=== PATIENT | female | born 1990 | race Caucasian/White ===

== ENCOUNTER 2016-07-26 18:03 | Emergency (ER) | payer OTHER ==
[2016-07-26 18:11] VITALS: BMI 20.5
[2016-07-26 18:56] LABS: BASO % 0.4 % (0.0-2.0); EOS % 0.1 % (0.0-4.0); HEMATOCRIT 41.3 % (34.0-47.0); LYMPH # 1.1 K/uL (1.0-4.3); LYMPH % 9.9 % (20.0-40.0); MEAN CELL VOLUME 88.8 fL (81.0-99.0); MEAN CORPUSCULAR HEMOGLOBIN 29.3 pg (27.0-31.0); MEAN PLATELET VOLUME 8.1 fL (7.2-11.7); MONO # 0.3 K/uL (0.0-0.8); MONO % 2.7 % (0.0-10.0); PLATELET COUNT 318 K/uL (130-400); RED CELL DISTRIBUTION WIDTH 14.1 % (11.5-14.5); WHITE BLOOD COUNT 11.4 K/uL (4.8-10.8)
[2016-07-26 19:04] LABS: CHLORIDE 103 mmol/L (98-107); POTASSIUM 3.2 mmol/L (3.6-5.2); SODIUM 141 mmol/L (132-148)
[2016-07-26 19:06] LABS: BILIRUBIN,TOTAL 0.7 mg/dL (0.2-1.3); GFR AFRICAN-AMERICAN > 60
[2016-07-26 19:07] LABS: ALB/GLOB RATIO 1.4 (1.0-2.1); ALKALINE PHOSPHATASE 73 U/L (38-126); ALT/SGPT 19 U/L (9-52); AST/SGOT 22 U/L (14-36); BLOOD UREA NITROGEN 11 mg/dL (7-17); CALCIUM 9.5 mg/dl (8.6-10.4); CARBON DIOXIDE 22 mmol/L (22-30); GLUCOSE,RANDOM 140 mg/dL (65-105); TOTAL PROTEIN 7.4 g/dL (6.3-8.3)
[2016-07-26] MEDS ORDERED: Sodium Chloride 0.9% 1,000 ML IV ONE (19:34)
--- NOTE | 2016-07-26 19:34 | C.PDOC ---
History Of Present Illness pt presents with abdominal pain, nausea nad vomiting. Has also had vaginal bleeding since may 2016, when she had tubal ligation. Was seen by production statistical clerk yesterday and given "some shots" No f/c/ not tolerating po Time Seen by Provider: 07/26/16 19:33 Chief Complaint (Nursing): Abdominal Pain History Per: Patient Onset/Duration Of Symptoms: Days Current Symptoms Are (Timing): Still Present Context: Other Severity: Moderate Pain Scale Rating Of: 4 Location Of Pain/Discomfort: Epigastric Radiation Of Pain To:: None Quality Of Discomfort: Dull, Cramping Associated Symptoms: Nausea, Vomiting. denies: Fever, Chills, Diarrhea Exacerbating Factors: None Alleviating Factors: None Last Bowel Movement: Today Recent travel outside of the [place] States: No Additional History Per: Family Abnormal Vaginal Bleeding: Yes Past Medical History Reviewed: Historical Data, Nursing Documentation, Vital Signs Vital Signs: Last Vital Signs Temp 97.6 F 07/26/16 18:14 Pulse 90 07/26/16 20:45 Resp 18 07/26/16 20:45 BP 112/67 07/26/16 20:45 Pulse Ox 97 07/26/16 20:45 - Medical History PMH: Asthma, Bipolar Disorder, Gastritis, Kidney Stones, Seizures Family History: States: No Known Family Hx - Social History Hx Tobacco Use: Yes Hx Alcohol Use: No Hx Substance Use: Yes - Immunization History Hx Tetanus Toxoid Vaccination: No Hx Influenza Vaccination: No Hx Pneumococcal Vaccination: No Review Of Systems Constitutional: Positive for: Malaise. Negative for: Fever, Chills Eyes: Negative for: Vision Change ENT: Negative for: Throat Pain Cardiovascular: Negative for: Chest Pain Respiratory: Negative for: Shortness of Breath Gastrointestinal: Positive for: Nausea, Vomiting, Abdominal Pain Genitourinary: Positive for: Vaginal Bleeding Musculoskeletal: Negative for: Back Pain Skin: Negative for: Rash, Lesions, Jaundice, Bruising Neurological: Negative for: Weakness Psych: Negative for: Anxiety Physical Exam - Physical Exam Appears: Non-toxic Skin: Warm, Dry Head: Normacephalic Eye(s): bilateral: Normal Inspection Oral Mucosa: Moist Neck: Supple Chest: Symmetrical Cardiovascular: Rhythm Regular Respiratory: No Rales, No Rhonchi, No Wheezing Gastrointestinal/Abdominal: Soft, Tenderness (mid epigastric), No Distention, No Guarding Back: Normal Inspection, No CVA Tenderness Extremity: Normal ROM Extremity: Bilateral: Atraumatic, Normal Color And Temperature Neurological/Psych: Oriented x3, Normal Speech, Normal Cognition Gait: Steady ED Course And Treatment - Laboratory Results Result Diagrams: 07/26/16 18:45 07/26/16 18:45 O2 Sat by Pulse Oximetry: 98 Pulse Ox Interpretation: Normal Progress Note: blood work, ivf, zofran. pepcid Reevaluation Time: 23:25 Reassessment Condition: Improved Disposition Counseled Patient/Family Regarding: Studies Performed, Diagnosis, Need For Followup, Rx Given - Disposition Referrals: [facility] [Outside] Formerly [facility] [Outside] Disposition: HOME/ ROUTINE Disposition Time: 19:34 Condition: FAIR Prescriptions: Ondansetron ODT [Zofran ODT] 1 odt PO BID PRN #10 odt PRN Reason: Nausea/Vomiting traMADol [Ultram] 50 mg PO TID PRN #12 tab PRN Reason: Pain, Moderate (4-7) Instructions: Abdominal Pain (ED), Acute Nausea and Vomiting (ED) - Clinical Impression Clinical Impression: Abdominal pain, Nausea & vomiting
[2016-07-26] MEDS ORDERED: Sodium Chloride 0.9% 1,000 ML ONE (19:38)
[2016-07-26 19:42] VITALS: RESP 18
[2016-07-26 20:43] LABS: NEUTROPHIL 83 % (50-75); NUCLEATED RED BLOOD CELL 1 % (0-0); REACTIVE LYMPHOCYTES 3 % (0-0); TOTAL CELLS COUNTED 100
[2016-07-26] MEDS ORDERED: Iodixanol 320 MG/ML 100 ML BOTTLE IV ONE (20:49)
[2016-07-26 21:07] LABS: RBC URINE 18 /hpf (0-3); TRANSITIONAL EPITHIAL < 1 /hpf (0-3); URINE BACTERIA RARE (<OCC); URINE BILIRUBIN NEGATIVE (NEGATIVE); URINE COLOR Amber (YELLOW); URINE GLUCOSE (UA) NORMAL (Normal); URINE KETONE 2+ mg/dL (NEGATIVE); URINE LEUKOCYTE ESTERASE NEG Leu/uL (Negative); URINE PROTEIN 2+ mg/dL (NEGATIVE); URINE UROBILINOGEN NORMAL mg/dL (0.2-1.0); WBC URINE 2 /hpf (0-5)
[2016-07-26 21:09] LABS: URINE BLOOD 2+ (NEGATIVE)
[2016-07-26 21:20] VITALS: PULSE 90
[2016-07-26 23:28] VITALS: O2SAT 98
[2016-07-26 23:43] VITALS: BP 130/84; TEMP 97.9
--- NOTE | 2016-07-27 08:35 | CT ---
PROCEDURE: CT Abdomen and Pelvis with intravenous contrast HISTORY: mid epigastric pain, status post tubal ligation COMPARISON: CT abdomen and pelvis dated 06/18/2015 TECHNIQUE: Multiple contiguous axial images were performed through the abdomen and pelvis with intravenous contrast. Subsequently, sagittal and coronal reformatted images were obtained.. Radiation dose: Total exam DLP = 253 mGy-cm. This CT exam was performed using one or more of the following dose reduction techniques: Automated exposure control, adjustment of the mA and/or kV according to patient size, and/or use of iterative reconstruction technique. FINDINGS: LOWER THORAX: Unremarkable. LIVER: 1.9 centimeter focal area of low attenuation seen within the medial right hepatic lobe adjacent to the ligamentum teres demonstrating a Hounsfield unit attenuation of 50, indeterminate. This may represent some focal fatty infiltration. Additional etiologies not excluded. Clinical correlation. GALLBLADDER AND BILE DUCTS: Unremarkable. PANCREAS: Unremarkable. No gross lesion or ductal dilatation. SPLEEN: Unremarkable. ADRENALS: Unremarkable. No mass. KIDNEYS AND URETERS: Unremarkable. No hydronephrosis. No solid mass. VASCULATURE: Unremarkable. No aortic aneurysm. BOWEL: Unremarkable. No obstruction. Under distended and/or mildly prominent left hemicolon. APPENDIX: Not well identified. No findings to suggest acute appendicitis. PERITONEUM: Unremarkable. No free fluid. No free air. LYMPH NODES: Unremarkable. No enlarged lymph nodes. BLADDER: Unremarkable. REPRODUCTIVE: Unremarkable. BONES: Suggestion of a prominent posterior disc bulge at the L4-5 level. Correlation with lumbar spine MRI may be helpful if clinically indicated. OTHER FINDINGS: None. IMPRESSION: Negative acute. 1.9 centimeter focal area of low attenuation seen within the medial right hepatic lobe adjacent to the ligamentum teres demonstrating a Hounsfield unit attenuation of 50, indeterminate. This may represent some focal fatty infiltration. Additional etiologies not excluded. Clinical correlation. Under distended and/or mildly prominent left hemicolon. Suggestion of a prominent posterior disc bulge at the L4-5 level. Correlation with lumbar spine MRI may be helpful if clinically indicated. These findings were preliminarily reported at 10:57 p.m. on 07/26/[address] Branden Morgan from [employer].
== END 2016-07-26 23:43 | disposition home or self-care (01) ==
LOC: C.ER 18:03
DX: R10.13 Epigastric pain (principal); R11.2 Nausea with vomiting, unspecified
CPT/HCPCS: 74177; 80053; 81001; 83690; 84703; 85025; 96361; 96374; 96375; 99285; J2270; J2405; J2765; J7040; Q9967

== ENCOUNTER 2016-07-27 19:00 | Observation (INO) | payer OTHER ==
[2016-07-27 19:01] VITALS: BMI 20.5
[2016-07-27] MEDS ORDERED: Sodium Chloride 0.9% 1,000 ML IV ONE (19:43)
[2016-07-27] MEDS ORDERED: Sodium Chloride 0.9% 1,000 ML ONE (19:52)
[2016-07-27 19:54] LABS: BASO % 0.3 % (0.0-2.0); EOS % 0.1 % (0.0-4.0); HEMATOCRIT 40.9 % (34.0-47.0); LYMPH # 1.6 K/uL (1.0-4.3); MEAN CORPUSCULAR HEMOGLOBIN 29.4 pg (27.0-31.0); MEAN CORPUSCULAR HGB CONC 33.1 g/dL (33.0-37.0); MEAN PLATELET VOLUME 8.2 fL (7.2-11.7); MONO # 0.8 K/uL (0.0-0.8); MONO % 6.5 % (0.0-10.0); RED CELL DISTRIBUTION WIDTH 14.2 % (11.5-14.5)
[2016-07-27 20:02] LABS: CHLORIDE 101 mmol/L (98-107); POTASSIUM 2.8 mmol/L (3.6-5.2); SODIUM 138 mmol/L (132-148)
[2016-07-27 20:04] LABS: GFR AFRICAN-AMERICAN > 60
[2016-07-27 20:05] LABS: ALB/GLOB RATIO 1.7 (1.0-2.1); ALKALINE PHOSPHATASE 71 U/L (38-126); ALT/SGPT 23 U/L (9-52); AST/SGOT 17 U/L (14-36); BILIRUBIN,TOTAL 0.6 mg/dL (0.2-1.3); BLOOD UREA NITROGEN 8 mg/dL (7-17); CARBON DIOXIDE 20 mmol/L (22-30); GLUCOSE,RANDOM 96 mg/dL (65-105); TOTAL PROTEIN 7.1 g/dL (6.3-8.3)
[2016-07-27 20:29] LABS: RBC URINE 18 /hpf (0-3); URINE BILIRUBIN 1+ (NEGATIVE); URINE BLOOD NEGATIVE (NEGATIVE); URINE COLOR Yellow (YELLOW); URINE GLUCOSE (UA) NORMAL (Normal); URINE KETONE 2+ mg/dL (NEGATIVE); URINE LEUKOCYTE ESTERASE NEG Leu/uL (Negative); URINE PROTEIN 2+ mg/dL (NEGATIVE); WBC URINE 3 /hpf (0-5)
[2016-07-27] MEDS ORDERED: Morphine 4 MG/ML VIAL ONE (21:07)
--- NOTE | 2016-07-27 22:23 | C.PDOC ---
History Of Present Illness 25 y/o female presents to the ED for evaluation of vomiting which began yesterday. Patient states she underwent tubal ligation around 1 month ago. Patient was seen by her PMD a couple days ago and was prescribed control pills. Patient states she took her second pill yesterday, shortly after which her episodes of vomiting started. Patient was seen in the ED where she underwent labwork, CT scan, and test; all results were unremarkable. Patient was discharged with Rx, which she has yet to fill. Patient notes her vomiting has continued since her discharge and she now has diffuse abdominal pain. Patient denies fever, chills, diarrhea, dysuria, hematuria. Time Seen by Provider: 07/27/16 19:38 Chief Complaint (Nursing): GI Problem History Per: Patient History/Exam Limitations: no limitations Onset/Duration Of Symptoms: Hrs Current Symptoms Are (Timing): Still Present Quality Of Discomfort: "Pain" Associated Symptoms: Vomiting. denies: Fever, Chills, Diarrhea, Urinary Symptoms Exacerbating Factors: None Alleviating Factors: None Last Bowel Movement: Today Recent travel outside of the [place] States: No Additional History Per: Patient Abnormal Vaginal Bleeding: No Past Medical History Reviewed: Historical Data, Nursing Documentation, Vital Signs Vital Signs: Last Vital Signs Temp 98.3 F 07/27/16 19:13 Pulse 84 07/27/16 19:13 Resp 14 07/27/16 19:13 BP 118/78 07/27/16 19:13 Pulse Ox 97 07/27/16 22:41 - Medical History PMH: Asthma, Bipolar Disorder, Gastritis, Kidney Stones, Seizures Other Surgeries: Tubal ligation Family History: States: Unknown Family Hx - Social History Hx Tobacco Use: Yes Hx Alcohol Use: No Hx Substance Use: Yes Review Of Systems Except As Marked, All Systems Reviewed And Found Negative. Constitutional: Negative for: Fever, Chills Gastrointestinal: Positive for: Vomiting, Abdominal Pain. Negative for: Diarrhea, Constipation Genitourinary: Negative for: Dysuria, Hematuria Physical Exam - Physical Exam Appears: Non-toxic, No Acute Distress Skin: Normal Color, Warm, Dry Head: Atraumatic, Normacephalic Oral Mucosa: Moist Neck: Supple Chest: Symmetrical, No Deformity, No Tenderness Cardiovascular: Rhythm Regular, No Murmur Respiratory: Normal Breath Sounds, No Rales, No Rhonchi, No Wheezing Gastrointestinal/Abdominal: Soft, Tenderness (mild, diffuse ), No Guarding, No Rebound Back: Normal Inspection, No CVA Tenderness Extremity: Normal ROM, No Pedal Edema Neurological/Psych: Oriented x3, Normal Speech, Normal Cognition Gait: Steady ED Course And Treatment - Laboratory Results Result Diagrams: 07/27/16 19:51 07/27/16 19:51 O2 Sat by Pulse Oximetry: 97 (on RA) Pulse Ox Interpretation: Normal Medical Decision Making Medical Decision Making: Plan: * labs * Morphine IV * Pepcid IV * Potassium Chloride IV * Reglan IV * Toradol IV * IV Fluids * reassess and disposition Progress: labs ordered and reviewed. Post meds still with nausea, unable to tolerate PO, additional pain meds ordered K down to 2.8, IV k ordered In view of ongoing symptoms and low K, observation indicated Discussed with dr Ktahy Shi agrees with plan and requested dr Shaw GI consult Spoke with dr Mayo covering Disposition - Disposition Disposition: HOME/ ROUTINE Disposition Time: 10:30 Condition: FAIR - Clinical Impression Clinical Impression: Nausea & vomiting, Abdominal pain - Scribe Statement The provider has reviewed the documentation as recorded by the Scribe (Carly Shi) Provider Attestation: All medical record entries made by the Scribe were at my direction and personally dictated by me. I have reviewed the chart and agree that the record accurately reflects my personal performance of the history, physical exam, medical decision making, and the department course for this patient. I have also personally directed, reviewed, and agree with the discharge instructions and disposition.
[2016-07-28 00:28] VITALS: RESP 20
[2016-07-28] MEDS ORDERED: Dextrose 5%/0.45% NS 1,000 ML IV SCH (01:15)
--- NOTE | 2016-07-28 08:13 | CP.PCM.CON ---
<Claire Love - Last Filed: 07/28/16 09:54> History of Present Illness - History of Present Illness History of Present Illness: Gastroenterology fellow/PGY4 Consult Note 25 year old female with history of Alcohol abuse, tobacco abuse, Alcohol pancreatitis 2015, and recent tubal ligation June 2016 presenting with vomiting and abdominal discomfort. 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 She was seen in the ER on 07/26 for similar symptoms with return on 07/27 due to nausea and ten episodes of watery/bilious vomitus after the second dose of the control pills. Associated epigastric soreness from the recurrent retching and heartburn. Denies hematemesis, diarrhea, constipation, hematochezia, melena, or unintentional weight loss. Notes recent [facility] ER visit last week for fever, chills, sweats, and cough with antibiotic administration and admitted noncompliance to continued antibiotic therapy prescribed. Similar episodes of dyspepsia, vomiting, abdominal pain from 2012 to 2015 that patient associates with prior heavy alcohol abuse of 1.5 pints of hard liquor daily and heavy tobacco use. No prior EGD or colonoscopy. Family- denies colon cancer, stomach cancer Social- 5 cigarettes/day x 2 years (previous 1ppd x 5 years), 1-2 mixed drinks x 2years (previous 1.5 pints x 5 years), denies illicit drug use Surgery- tubal ligation June 2016 Review of Systems - Review of Systems Review of Systems: A 12-point review of systems negative except for as above Past Patient History - Infectious Disease Hx of Infectious Diseases: None - Past Medical History & Family History Past Medical History?: Yes - Past Social History Smoking Status: Light Smoker < 10 Cigarettes Daily - CARDIAC Hx Cardiac Disorders: No - PULMONARY Hx Respiratory Disorders: Yes Hx Asthma: Yes - NEUROLOGICAL Hx Neurological Disorder: Yes Hx Seizures: Yes (LAST 2008) - HEENT Hx HEENT Problems: No - RENAL Hx Chronic Kidney Disease: Yes Hx Kidney Stones: Yes - ENDOCRINE/METABOLIC Hx Endocrine Disorders: No - HEMATOLOGICAL/ONCOLOGICAL Hx Blood Disorders: No - INTEGUMENTARY Hx Dermatological Problems: No - MUSCULOSKELETAL/RHEUMATOLOGICAL Hx Musculoskeletal Disorders: No Hx Falls: No - GASTROINTESTINAL Hx Gastrointestinal Disorders: Yes Hx Gastritis: Yes - GENITOURINARY/GYNECOLOGICAL Hx Genitourinary Disorders: No - PSYCHIATRIC Hx Psychophysiologic Disorder: Yes Hx Bipolar Disorder: Yes Hx Substance Use: Yes - SURGICAL HISTORY Hx Surgeries: Yes Hx Tubal Ligation: Yes - ANESTHESIA Hx Anesthesia: Yes Hx Anesthesia Reactions: No Meds Allergies/Adverse Reactions: Allergies Allergy/AdvReac Type Severity Reaction Status Date / Time latex Allergy Verified 07/27/16 19:20 tape Allergy Uncoded 07/27/16 19:20 - Medications Medications: Current Medications Enoxaparin Sodium (Lovenox) 40 mg SC DAILY [facility] Ciprofloxacin (Cipro 400mg/200ml Dsw) 400 mg in 200 mls @ 133 mls/hr IVPB Q12H [facility] Dextrose/Sodium Chloride (Dextrose 5%/0.45% Ns 1000 Ml) 1,000 mls @ 75 mls/hr IV .[id number] [facility] Last Admin: 07/28/16 01:45 Dose: 75 mls/hr Pantoprazole Sodium (Protonix Inj) 40 mg IVP DAILY [facility] Physical Exam - Constitutional Appears: Non-toxic, No Acute Distress - Head Exam Head Exam: ATRAUMATIC, NORMOCEPHALIC - Eye Exam Eye Exam: EOMI, PERRL Pupil Exam: PERRL. absent: Miosis, Mydriatic - ENT Exam ENT Exam: Mucous Membranes Moist, Normal Oropharynx - Neck Exam Neck exam: Positive for: Full Rom, Normal Inspection - Respiratory Exam Respiratory Exam: Clear to Auscultation Bilateral. absent: Rales, Rhonchi, Wheezes - Cardiovascular Exam Cardiovascular Exam: RRR, +S1, +S2. absent: Gallop, Rubs - GI/Abdominal Exam GI & Abdominal Exam: Normal Bowel Sounds, Soft, Tenderness. absent: Distended, Firm, Guarding, Organomegaly, Rebound, Rigid Additional comments: mild epigastric discomfort to palpation - Extremities Exam Extremities exam: Positive for: full ROM. Negative for: pedal edema - Neurological Exam Neurological exam: Alert - Psychiatric Exam Psychiatric exam: Normal Affect, Normal Mood - Skin Skin Exam: Dry, Intact, Normal Color, Warm Results - Vital Signs Recent Vital Signs: Last Vital Signs Temp 98.6 F 07/28/16 00:00 Pulse 58 L 07/28/16 00:00 Resp 20 07/28/16 00:00 BP 113/73 07/28/16 00:00 Pulse Ox 97 07/28/16 00:00 - Labs Result Diagrams: 07/27/16 19:51 07/28/16 08:06 Assessment & Plan - Assessment and Plan (Free Text) Assessment: 25 year old female with history of Alcohol abuse, tobacco abuse, and Alcohol pancreatitis 2015 presenting with vomiting and abdominal discomfort after day two of control pills for vaginal bleeding after recent tubal ligation June 2016. No prior EGD or colonoscopy. Plan: >no further vomitus episodes since antiemetics >regular diet, low fat >tolerated for breakfast >continue PPI for heartburn >will follow up with Cutter Inspector this week -does not plan to continue control pills >cleared for discharge from GI standpoint >thank you for opportunity to participate in the care of this patient <Charli Shaw - Last Filed: 07/28/16 10:02> Meds - Medications Medications: Current Medications Enoxaparin Sodium (Lovenox) 40 mg SC DAILY [facility] Ciprofloxacin (Cipro 400mg/200ml Dsw) 400 mg in 200 mls @ 133 mls/hr IVPB Q12H [facility] Dextrose/Sodium Chloride (Dextrose 5%/0.45% Ns 1000 Ml) 1,000 mls @ 75 mls/hr IV .[id number] [facility] Last Admin: 07/28/16 01:45 Dose: 75 mls/hr Pantoprazole Sodium (Protonix Inj) 40 mg IVP DAILY [facility] Results - Vital Signs Recent Vital Signs: Last Vital Signs Temp 98.6 F 07/28/16 00:00 Pulse 58 L 07/28/16 00:00 Resp 20 07/28/16 00:00 BP 113/73 07/28/16 00:00 Pulse Ox 97 07/28/16 00:00 - Labs Result Diagrams: 07/27/16 19:51 07/28/16 08:06 Labs: Laboratory Results - last 24 hr 07/28/16 08:06 Sodium 140 Potassium 2.8 L Chloride 109 H Carbon Dioxide 21 L Anion Gap 13 BUN 7 Creatinine 0.6 L Est GFR ( Amer) > 60 Est GFR (Non-Af Amer) > 60 Random Glucose 100 Calcium 8.2 L Total Bilirubin 0.6 AST 17 ALT 20 Alkaline Phosphatase 49 Total Protein 5.8 L Albumin 3.2 L D Globulin 2.6 Albumin/Globulin Ratio 1.2 Attending/Attestation - Attestation I have personally seen and examined this patient.: Yes I have fully participated in the care of the patient.: Yes I have reviewed all pertinent clinical information: Yes Notes (Text): 07/28/16 09:58 I have seen and examined patient with GI fellow. Agree with above documentation with the following additions. In brief, this is a 25 year old female with prior history of ETOH related pancreatitis who presents to hospital with complaint of persistent nausea and vomiting. She claims symptoms started shortly after beginning new medication for control 2 days ago. She began to develop nausea with multiple episodes of non-bloody emesis. She endorses mild epigastric discomfort which started following the onset of vomiting. She denies recent travel, sick contacts, or unusual food consumption. She denies fever/chills, weight loss, rectal bleeding, change in bowel habits, or recent excessive ETOH consumption. No prior endoscopic evaluation. She ate eggs/ qureshi for breakfast this morning without recurrent vomiting. History of ETOH pancreatitis Nausea, vomiting - clinical presentation suggestive of viral gastroenteritis - Advance diet slowly as tolerated - Continue with IVF hydration, supportive care - Antibiotics started by medical team, would discontinue, no clear infectious cause seen - Continue with PPI therapy for treatment duration of 2 weeks - If tolerating diet, from GI perspective patient can be discharged home with subsequent outpatient follow up 07/28/16 10:02
[2016-07-28 08:36] LABS: CHLORIDE 109 mmol/L (98-107)
[2016-07-28 08:37] LABS: POTASSIUM 2.8 mmol/L (3.6-5.2); SODIUM 140 mmol/L (132-148)
[2016-07-28 08:39] LABS: ALB/GLOB RATIO 1.2 (1.0-2.1); AST/SGOT 17 U/L (14-36); BILIRUBIN,TOTAL 0.6 mg/dL (0.2-1.3); BLOOD UREA NITROGEN 7 mg/dL (7-17); CARBON DIOXIDE 21 mmol/L (22-30); GFR AFRICAN-AMERICAN > 60; TOTAL PROTEIN 5.8 g/dL (6.3-8.3)
[2016-07-28 08:40] LABS: ALKALINE PHOSPHATASE 49 U/L (38-126); ALT/SGPT 20 U/L (9-52); CALCIUM 8.2 mg/dl (8.6-10.4); GLUCOSE,RANDOM 100 mg/dL (65-105)
[2016-07-28] MEDS ORDERED: Potassium Chloride 20 mEq ER Tab PO ONE ×3 (09:10→17:00)
[2016-07-28] MEDS ORDERED: Ciprofloxacin 400mg/200ml D5W 400 MG/200 ML BAG IVPB SCH (10:00)
[2016-07-28] MEDS ORDERED: Enoxaparin 40 mg Syringe SC SCH (10:00)
[2016-07-28] MEDS ORDERED: Potassium Chloride 20 mEq ER Tab PO SCH (10:30)
--- NOTE | 2016-07-28 14:40 | CP.PCM.HP ---
Past Patient History - Infectious Disease Hx of Infectious Diseases: None - Past Medical History & Family History Past Medical History?: Yes - Past Social History Smoking Status: Light Smoker < 10 Cigarettes Daily - CARDIAC Hx Cardiac Disorders: No - PULMONARY Hx Respiratory Disorders: Yes Hx Asthma: Yes - NEUROLOGICAL Hx Neurological Disorder: Yes Hx Seizures: Yes (LAST 2008) - HEENT Hx HEENT Problems: No - RENAL Hx Chronic Kidney Disease: Yes Hx Kidney Stones: Yes - ENDOCRINE/METABOLIC Hx Endocrine Disorders: No - HEMATOLOGICAL/ONCOLOGICAL Hx Blood Disorders: No - INTEGUMENTARY Hx Dermatological Problems: No - MUSCULOSKELETAL/RHEUMATOLOGICAL Hx Musculoskeletal Disorders: No Hx Falls: No - GASTROINTESTINAL Hx Gastrointestinal Disorders: Yes Hx Gastritis: Yes - GENITOURINARY/GYNECOLOGICAL Hx Genitourinary Disorders: No - PSYCHIATRIC Hx Psychophysiologic Disorder: Yes Hx Bipolar Disorder: Yes Hx Substance Use: Yes - SURGICAL HISTORY Hx Surgeries: Yes Hx Tubal Ligation: Yes - ANESTHESIA Hx Anesthesia: Yes Hx Anesthesia Reactions: No Meds Allergies/Adverse Reactions: Allergies Allergy/AdvReac Type Severity Reaction Status Date / Time latex Allergy Verified 07/27/16 19:20 tape Allergy Uncoded 07/27/16 19:20 Results - Vital Signs Recent Vital Signs: Last Vital Signs Temp 98.4 F 07/28/16 08:00 Pulse 85 07/28/16 08:00 Resp 20 07/28/16 08:00 BP 105/65 07/28/16 08:00 Pulse Ox 97 07/28/16 08:00 - Labs Result Diagrams: 07/27/16 19:51 07/28/16 08:06 Labs: Laboratory Results - last 24 hr 07/28/16 08:06 Sodium 140 Potassium 2.8 L Chloride 109 H Carbon Dioxide 21 L Anion Gap 13 BUN 7 Creatinine 0.6 L Est GFR ( Amer) > 60 Est GFR (Non-Af Amer) > 60 Random Glucose 100 Calcium 8.2 L Total Bilirubin 0.6 AST 17 ALT 20 Alkaline Phosphatase 49 Total Protein 5.8 L Albumin 3.2 L D Globulin 2.6 Albumin/Globulin Ratio 1.2 Assessment & Plan - Assessment and Plan (Free Text) Plan: gastritis secondary to eating [employer] supplemnt k and niurka same spoke to gi dr. damian who has cleared pt to go to home cmp stat will check results
[2016-07-28 15:24] LABS: CHLORIDE 108 mmol/L (98-107)
[2016-07-28 15:25] LABS: SODIUM 140 mmol/L (132-148)
[2016-07-28 15:27] LABS: ALB/GLOB RATIO 1.2 (1.0-2.1); AST/SGOT 24 U/L (14-36); BILIRUBIN,TOTAL 0.6 mg/dL (0.2-1.3); CARBON DIOXIDE 23 mmol/L (22-30); GFR AFRICAN-AMERICAN > 60; TOTAL PROTEIN 5.8 g/dL (6.3-8.3)
[2016-07-28 15:28] LABS: ALKALINE PHOSPHATASE 47 U/L (38-126); ALT/SGPT 23 U/L (9-52); BLOOD UREA NITROGEN 5 mg/dL (7-17); CALCIUM 8.4 mg/dl (8.6-10.4); GLUCOSE,RANDOM 82 mg/dL (65-105)
[2016-07-28 15:31] VITALS: BP 124/59; PULSE 55; TEMP 98.2; O2SAT 96
== END 2016-07-28 17:20 | disposition home or self-care (01) ==
LOC: C.ER 19:00 → C.6T 22:47
PROVIDERS: ADMIT Internal Medicine Nephrology; ATTEND Internal Medicine Nephrology
DX: K29.60 Other gastritis without bleeding (principal); F17.210 Nicotine dependence, cigarettes, uncomplicated; K86.0 Alcohol-induced chronic pancreatitis; F10.10 Alcohol abuse, uncomplicated
CPT/HCPCS: 36415; 80053; 81001; 83690; 84703; 85025; 96361; 96375; 96376; 99285; C9113; G0378; J0744; J1650; J1885; J2270; J2765; J3480; J7040; J7042

== ENCOUNTER 2016-11-20 04:22 | Emergency (ER) | payer OTHER ==
[2016-11-20 04:22] VITALS: BMI 20.5
[2016-11-20 04:35] VITALS: O2SAT 99
[2016-11-20] MEDS ORDERED: Sodium Chloride 0.9% 1,000 ML IV STA (04:36)
[2016-11-20] MEDS ORDERED: Sodium Chloride 0.9% 1,000 ML ONE (04:43)
[2016-11-20 05:12] LABS: BASO % 0.2 % (0.0-2.0); EOS % 0.1 % (0.0-4.0); HEMATOCRIT 39.7 % (34.0-47.0); LYMPH % 8.8 % (20.0-40.0); MEAN CELL VOLUME 88.7 fL (81.0-99.0); MEAN CORPUSCULAR HEMOGLOBIN 29.4 pg (27.0-31.0); MEAN CORPUSCULAR HGB CONC 33.1 g/dL (33.0-37.0); MEAN PLATELET VOLUME 8.2 fL (7.2-11.7); MONO % 8.4 % (0.0-10.0); PLATELET COUNT 258 K/uL (130-400); RED CELL DISTRIBUTION WIDTH 14.8 % (11.5-14.5); WHITE BLOOD COUNT 11.7 K/uL (4.8-10.8)
[2016-11-20 05:20] LABS: CHLORIDE 101 mmol/L (98-107)
[2016-11-20 05:21] LABS: SODIUM 141 mmol/L (132-148)
[2016-11-20 05:22] LABS: POTASSIUM 3.3 mmol/L (3.6-5.2)
[2016-11-20 05:24] LABS: ALB/GLOB RATIO 1.2 (1.0-2.1); ALKALINE PHOSPHATASE 64 U/L (38-126); ALT/SGPT 29 U/L (9-52); AST/SGOT 19 U/L (14-36); BILIRUBIN,TOTAL 0.5 mg/dL (0.2-1.3); BLOOD UREA NITROGEN 9 mg/dL (7-17); CARBON DIOXIDE 23 mmol/L (22-30); GFR AFRICAN-AMERICAN > 60; TOTAL PROTEIN 8.3 g/dL (6.3-8.3)
[2016-11-20 05:25] LABS: CALCIUM 9.5 mg/dl (8.6-10.4); GLUCOSE,RANDOM 102 mg/dL (65-105)
--- NOTE | 2016-11-20 05:34 | C.PDOC ---
History Of Present Illness 26 year old female with history of pancreatitis presents to the ED with complaints of upper abdominal pain and is actively vomiting upon arrival to ED. Patient notes she was seen in [facility] yesterday and given nausea medicine but vomiting persists. She notes symptoms are similiar to flare ups due to pancreatitis in the past. Patient denies fever, diarrhea, back pain, or urinary symptoms. Chief Complaint (Nursing): Abdominal Pain History Per: Patient History/Exam Limitations: no limitations Onset/Duration Of Symptoms: Days Current Symptoms Are (Timing): Still Present Location Of Pain/Discomfort: Epigastric Radiation Of Pain To:: None Quality Of Discomfort: "Pain" Associated Symptoms: Vomiting. denies: Fever, Chills, Diarrhea, Constipation, Urinary Symptoms Exacerbating Factors: None Alleviating Factors: None Recent travel outside of the [place]: No Abnormal Vaginal Bleeding: No Past Medical History Reviewed: Historical Data, Nursing Documentation, Vital Signs Vital Signs: Last Vital Signs Temp 97.9 F 11/20/16 04:31 Pulse 69 11/20/16 04:31 Resp 18 11/20/16 04:31 BP 119/81 11/20/16 04:31 Pulse Ox 99 11/20/16 05:35 - Medical History PMH: Anxiety, Asthma, Bipolar Disorder, Gastritis, Kidney Stones, Pancreatitis, Chronic Kidney Disease, Seizures (LAST 2008) Family History: States: Unknown Family Hx - Social History Hx Tobacco Use: Yes Hx Alcohol Use: Yes (STOPPED 08/2016) Hx Substance Use: Yes (DAILY BID) - Immunization History Hx Tetanus Toxoid Vaccination: No Hx Influenza Vaccination: No Hx Pneumococcal Vaccination: No Review Of Systems Constitutional: Negative for: Fever, Chills Cardiovascular: Negative for: Chest Pain, Palpitations Respiratory: Negative for: Cough, Shortness of Breath Gastrointestinal: Positive for: Vomiting, Abdominal Pain. Negative for: Diarrhea Physical Exam - Physical Exam Appears: Non-toxic, Other (Patient is actively vomiting in ED and on exam ) Skin: Warm, Dry Head: Atraumatic, Normacephalic Eye(s): bilateral: Normal Inspection, PERRL, EOMI Oral Mucosa: Moist Neck: Supple Chest: Symmetrical, No Deformity Cardiovascular: Rhythm Regular, No Murmur Respiratory: Normal Breath Sounds, No Rales, No Rhonchi, No Wheezing Gastrointestinal/Abdominal: Soft, Tenderness (mild epigastric tenderness ), No Distention, No Guarding, No Rebound Extremity: Normal ROM, No Tenderness ED Course And Treatment - Laboratory Results Result Diagrams: 11/20/16 05:10 11/20/16 05:10 O2 Sat by Pulse Oximetry: 99 (RA) Progress Note: Labs were ordered. Patient was given Zofran, Protonix, and IV fluids. Disposition - Disposition Disposition Time: 06:49 Condition: FAIR Forms: [employer] (Kinyarwanda) - Clinical Impression Clinical Impression: Vomiting, Abdominal pain - PA / [employer]CR[employer] / Resident Statement MD/DO has reviewed & agrees with the documentation as recorded. - Scribe Statement The provider has reviewed the documentation as recorded by the Scribe Rocio Joyner All medical record entries made by the Scribe were at my direction and personally dictated by me. I have reviewed the chart and agree that the record accurately reflects my personal performance of the history, physical exam, medical decision making, and the department course for this patient. I have also personally directed, reviewed, and agree with the discharge instructions and disposition. Physician Patient Turnover Patient Signed Over To: Chetna Almodovar Handoff Comments: CT abd/pelvis pending
[2016-11-20 05:40] LABS: NEUTROPHIL 82 % (50-75); TOTAL CELLS COUNTED 100
[2016-11-20] MEDS ORDERED: Iohexol 240 (50 ml) PO STA (06:22)
[2016-11-20] MEDS ORDERED: Iohexol 240 (50 ml) ONE (06:28)
[2016-11-20 06:46] LABS: RBC URINE 12 /hpf (0-3); URINE BACTERIA RARE (<OCC); URINE BILIRUBIN NEGATIVE (NEGATIVE); URINE BLOOD NEGATIVE (NEGATIVE); URINE COLOR Yellow (YELLOW); URINE GLUCOSE (UA) 1+ mg/dL (Normal); URINE KETONE 2+ mg/dL (NEGATIVE); URINE LEUKOCYTE ESTERASE NEG Leu/uL (Negative); URINE PROTEIN 1+ mg/dL (NEGATIVE); URINE UROBILINOGEN NORMAL mg/dL (0.2-1.0); WBC URINE 3 /hpf (0-5)
[2016-11-20 07:52] VITALS: BP 116/74; PULSE 77; RESP 20; TEMP 98.2
== END 2016-11-20 07:40 | disposition home or self-care (01) ==
LOC: C.ER 04:22
DX: R11.10 Vomiting, unspecified (principal); R10.9 Unspecified abdominal pain; N18.9 Chronic kidney disease, unspecified
CPT/HCPCS: 80053; 81001; 83690; 84703; 85025; 96361; 96374; 96375; 99285; C9113; J1885; J2405; J2765; J7040; Q9966

== ENCOUNTER 2017-01-12 04:12 | Emergency (ER) | payer OTHER ==
[2017-01-12 04:12] VITALS: BMI 20.5
[2017-01-12] MEDS ORDERED: Sodium Chloride 0.9% 1,000 ML IV ONE (04:50)
--- NOTE | 2017-01-12 04:57 | C.PDOC ---
History Of Present Illness <Lester Vines - Last Filed: 01/13/17 11:46> <Laurie Ramos - Last Filed: 01/16/17 08:06> 26 year old female with a Hx of pancreatitis presents to the ER with a complaint of abdominal pain and vomiting. Patient reports she has been drinking recently; denies fever or other complaints. (Lester Vines) History Per: Patient History/Exam Limitations: no limitations Onset/Duration Of Symptoms: Hrs Current Symptoms Are (Timing): Still Present Location Of Pain/Discomfort: Epigastric Radiation Of Pain To:: None Quality Of Discomfort: Unable To Describe Associated Symptoms: Vomiting. denies: Fever, Chills Exacerbating Factors: None Alleviating Factors: None Recent travel outside of the [place]: No Abnormal Vaginal Bleeding: No <Lester Vines - Last Filed: 01/13/17 11:46> <Laurie Ramos - Last Filed: 01/16/17 08:06> Time Seen by Provider: 01/12/17 04:46 Past Medical History Reviewed: Historical Data, Nursing Documentation, Vital Signs - Medical History PMH: Anxiety, Asthma, Bipolar Disorder, Gastritis, Kidney Stones, Pancreatitis, Chronic Kidney Disease, Seizures (LAST 2008) Surgical History: No Surg Hx Family History: States: Unknown Family Hx - Social History Hx Tobacco Use: Yes Hx Alcohol Use: Yes (STOPPED 08/2016) Hx Substance Use: Yes (DAILY BID) - Immunization History Hx Tetanus Toxoid Vaccination: No Hx Influenza Vaccination: No Hx Pneumococcal Vaccination: No <Lester Vines - Last Filed: 01/13/17 11:46> Vital Signs: Last Vital Signs Temp 98.2 F 01/12/17 10:32 Pulse 87 01/12/17 10:32 Resp 16 01/12/17 10:32 BP 103/72 01/12/17 10:32 Pulse Ox 97 01/12/17 10:32 Review Of Systems Constitutional: Negative for: Fever, Chills Gastrointestinal: Positive for: Vomiting, Abdominal Pain <Lester Vines - Last Filed: 01/13/17 11:46> Physical Exam - Physical Exam Appears: Non-toxic, No Acute Distress Skin: Normal Color, Warm, Dry Head: Atraumatic, Normacephalic Oral Mucosa: Moist Chest: Symmetrical, No Tenderness Cardiovascular: Rhythm Regular Respiratory: Normal Breath Sounds, No Rales, No Rhonchi, No Wheezing Gastrointestinal/Abdominal: Soft, Tenderness (Epigastric), No Guarding, No Rebound Neurological/Psych: Oriented x3, Normal Speech, Other (No focal deficits) <Lester Vines - Last Filed: 01/13/17 11:46> ED Course And Treatment - Laboratory Results Result Diagrams: 01/12/17 05:57 01/12/17 05:19 <Lester Vines - Last Filed: 01/13/17 11:46> - Laboratory Results Result Diagrams: 01/12/17 05:57 01/12/17 05:19 - CT Scan/US ct abd/pelvis Other Rad Studies (CT/US): Read By Radiologist, Radiology Report Reviewed CT/US Interpretation: Accession No. : [id number]. Patient Name / ID : RAY SCHULTE / [id number]. Exam Date : 01/12/2017 08:38:18 ( Addendum_ Approved ). Study Comment : Sex / Age : F / 26Y. Creator : Oleksandr العيل MD. Dictator : Powder Blender : Loan Clerk : Oleksandr العلي MD. Approver2 : Report Date : 01/12/2017 09:35:54. My Comment : . ADDENDUM: There is a typographical error in the technique portion support. Contiguous helical/transaxial sections of the abdomen pelvis performed following intravenous injection of approximately 100 cc Omnipaque 300 contrast material. Oral contrast not given. [ Addendum Report Added by Oleksandr العلي MD at 09:37:53 ]. PROCEDURE: CT scan 08/06/2016. HISTORY: Abdominal pain. . . History of pancreatitis. COMPARISON: . Comparison made with prior study 07/26/2016. TECHNIQUE: Contiguous axial images of the abdomen and pelvis. Oral contrast was administered. No IV contrast given. Coronal and Sagittal reformats generated. Radiation dose: Total exam DLP = mGy-cm. This CT exam was performed using one or more of the following dose reduction techniques: Automated exposure control, adjustment of the mA and/or kV according to patient size, and/or use of iterative reconstruction technique. Total exam DLP = 407.39 mGy-cm. FINDINGS: LOWER THORAX: Lung bases clear without infiltrate effusion or basilar pneumothorax. Tiny hiatal hernia. . LIVER: Liver exhibits normal size and attenuation pattern without mass collection or calcification. . Mild diffuse fatty hepatic infiltration. . GALLBLADDER AND BILE DUCTS: Gallbladder is physiologically distended. No evidence intraluminal gallbladder calculi. PANCREAS: Pancreas appears grossly unremarkable without mass collection or calcification. No obvious with inflammatory changes. Existing low. SPLEEN: Unremarkable. No splenomegaly. ADRENALS: No adrenal lesions. KIDNEYS AND URETERS: Kidneys demonstrate symmetric nephrograms. No evidence of nephrolithiasis or hydronephrosis. BLADDER: Urinary bladder is incompletely distended. REPRODUCTIVE: The left ovary measures approximately 2.3 x 1.8 cm and contains a eccentric septation. APPENDIX: The appendix appears unremarkable best seen on coronal image number [id number] 35. . BOWEL: Evaluation of the bowel is somewhat limited due to the lack of oral contrast. Stomach is incompletely distended. Visualized loops of small bowel exhibit normal contour and caliber. No evidence of mechanical small bowel obstruction. . There appear to be a few scattered colonic diverticula along the descending colon. PERITONEUM: Unremarkable. No fluid collection. No free air. . There is a small fat containing umbilical hernia. LYMPH NODES: Unremarkable. No enlarged lymph nodes. VASCULATURE: Unremarkable. No aortic aneurysm. BONES: No fracture or destructive lesion. OTHER FINDINGS: None. IMPRESSION: No acute intra abdominal pathology. Mild fatty hepatic infiltration. Small septated cyst left ovary felt to be present. <Laurie Ramos - Last Filed: 01/16/17 08:06> Medical Decision Making <eLster Vines - Last Filed: 01/13/17 11:46> <Laurie Ramos - Last Filed: 01/16/17 08:06> Medical Decision Making: Blood work and urinalysis ordered. Protonix, zofran, and IV fluids administered. 700 signed out to day shift [facility] imaging and final dispo (Lester Vines) Disposition <Lester Vines - Last Filed: 01/13/17 11:46> Counseled Patient/Family Regarding: Studies Performed, Diagnosis, Need For Followup, Rx Given - Disposition Disposition Time: 10:20 <Laurie Ramos - Last Filed: 01/16/17 08:06> - Disposition Referrals: [facility] [Outside] Disposition: HOME/ ROUTINE Condition: STABLE Additional Instructions: FOLLOW UP WITH GENERAL MANAGER WITHIN 1 WEEK RETURN TO ER IF SYMPTOMS WORSEN Prescriptions: Naproxen 375 mg PO BID PRN #20 tablet PRN Reason: pain Phenol/Glycerin [Chloraseptic Max [place]] 1 spray MM Q6 PRN #1 spray PRN Reason: THROAT PAIN Instructions: Ovarian Cyst (ED) Forms: [employer] (Maori) Print Language: LAO - Clinical Impression Clinical Impression: Ovarian cyst, Sore throat - Scribe Statement The provider has reviewed the documentation as recorded by the Scribe <Lester Vines - Last Filed: 01/13/17 11:46> <Laurie Ramos - Last Filed: 01/16/17 08:06> - Scribe Statement Valentin Pa All medical record entries made by the Scribe were at my direction and personally dictated by me. I have reviewed the chart and agree that the record accurately reflects my personal performance of the history, physical exam, medical decision making, and the department course for this patient. I have also personally directed, reviewed, and agree with the discharge instructions and disposition. (Lester Vines) Addendum <Lester Vines - Last Filed: 01/13/17 11:46> <Laurie Ramos - Last Filed: 01/16/17 08:06> Addendum: 01/12/17 08:18 Accession No. : [id number] Patient Name / ID : RAY SCHULTE / [id number] Exam Date : 01/12/2017 08:38:18 ( Addendum_Approved ) Study Comment : Sex / Age : F / 26Y Creator : Oleksandr العلي MD Dictator : Powder Blender : Loan Clerk : Oleksandr العلي MD Approver2 : Report Date : 01/12/2017 09:35:54 My Comment : ADDENDUM: There is a typographical error in the technique portion support. Contiguous helical/transaxial sections of the abdomen pelvis performed following intravenous injection of approximately 100 cc Omnipaque 300 contrast material. Oral contrast not given. [ Addendum Report Added by Oleksandr العلي MD at 01/12/2017 09:37:53 ] PROCEDURE: CT scan 08/06/2016 HISTORY: Abdominal pain. . . History of pancreatitis COMPARISON: . Comparison made with prior study 07/26/2016. TECHNIQUE: Contiguous axial images of the abdomen and pelvis. Oral contrast was administered. No IV contrast given. Coronal and Sagittal reformats generated. Radiation dose: Total exam DLP = mGy-cm. This CT exam was performed using one or more of the following dose reduction techniques: Automated exposure control, adjustment of the mA and/or kV according to patient size, and/or use of iterative reconstruction technique. Total exam DLP = 407.39 mGy-cm. FINDINGS: LOWER THORAX: Lung bases clear without infiltrate effusion or basilar pneumothorax. Tiny hiatal hernia. . LIVER: Liver exhibits normal size and attenuation pattern without mass collection or calcification. . Mild diffuse fatty hepatic infiltration. . GALLBLADDER AND BILE DUCTS: Gallbladder is physiologically distended. No evidence intraluminal gallbladder calculi. PANCREAS: Pancreas appears grossly unremarkable without mass collection or calcification. No obvious with inflammatory changes. Existing low SPLEEN: Unremarkable. No splenomegaly. ADRENALS: No adrenal lesions. KIDNEYS AND URETERS: Kidneys demonstrate symmetric nephrograms. No evidence of nephrolithiasis or hydronephrosis. BLADDER: Urinary bladder is incompletely distended. REPRODUCTIVE: The left ovary measures approximately 2.3 x 1.8 cm and contains a eccentric septation. APPENDIX: The appendix appears unremarkable best seen on coronal image number [id number] 35. . BOWEL: Evaluation of the bowel is somewhat limited due to the lack of oral contrast. Stomach is incompletely distended. Visualized loops of small bowel exhibit normal contour and caliber. No evidence of mechanical small bowel obstruction. . There appear to be a few scattered colonic diverticula along the descending colon. PERITONEUM: Unremarkable. No fluid collection. No free air. . There is a small fat containing umbilical hernia. LYMPH NODES: Unremarkable. No enlarged lymph nodes. VASCULATURE: Unremarkable. No aortic aneurysm. BONES: No fracture or destructive lesion. OTHER FINDINGS: None. IMPRESSION: No acute intra abdominal pathology. Mild fatty hepatic infiltration. Small septated cyst left ovary felt to be present. 01/12/17 10:30 Patient resting comfortably, in no acute distress. On exam, abdomen is soft and nontender. Patient made aware of CT scan finding - fatty liver and left ovarian septated cyst. Patient is well appearing, with normal vitals and comfortable being discharged home. She states she has sore throat, exam benign - given Rx for chloraseptic spray and naprosyn. She was instructed to follow up with laborer filter plant within 1 week, and understands she should return to ED if symptoms worsen. (Laurie Ramos)
[2017-01-12 05:17] LABS: RBC URINE 22 /hpf (0-3); URINE BILIRUBIN NEGATIVE (NEGATIVE); URINE BLOOD 2+ (NEGATIVE); URINE COLOR Amber (YELLOW); URINE GLUCOSE (UA) 1+ mg/dL (Normal); URINE KETONE 2+ mg/dL (NEGATIVE); URINE LEUKOCYTE ESTERASE NEG Leu/uL (Negative); URINE PROTEIN 3+ mg/dL (NEGATIVE); URINE UROBILINOGEN NORMAL mg/dL (0.2-1.0); WBC URINE 2 /hpf (0-5)
[2017-01-12] MEDS ORDERED: Sodium Chloride 0.9% 1,000 ML ONE (05:21)
[2017-01-12 05:38] LABS: ALB/GLOB RATIO 1.5 (1.0-2.1); ALKALINE PHOSPHATASE 65 U/L (38-126); ALT/SGPT 28 U/L (9-52); AST/SGOT 32 U/L (14-36); BLOOD UREA NITROGEN 17 mg/dL (7-17); CALCIUM 9.1 mg/dl (8.6-10.4); CARBON DIOXIDE 26 mmol/L (22-30); CHLORIDE 95 mmol/L (98-107); GFR AFRICAN-AMERICAN > 60; GLUCOSE,RANDOM 110 mg/dL (65-105); POTASSIUM 3.6 mmol/L (3.6-5.2); SODIUM 135 mmol/L (132-148); TOTAL PROTEIN 8.1 g/dL (6.3-8.3)
[2017-01-12 05:59] LABS: BASO % 0.2 % (0.0-2.0); EOS % 0.1 % (0.0-4.0); HEMATOCRIT 39.8 % (34.0-47.0); LYMPH % 7.4 % (20.0-40.0); MEAN CELL VOLUME 89.5 fL (81.0-99.0); MEAN CORPUSCULAR HEMOGLOBIN 30.8 pg (27.0-31.0); MEAN CORPUSCULAR HGB CONC 34.4 g/dL (33.0-37.0); MONO # 0.7 K/uL (0.0-0.8); MONO % 5.1 % (0.0-10.0); PLATELET COUNT 292 K/uL (130-400); RED CELL DISTRIBUTION WIDTH 12.6 % (11.5-14.5); WHITE BLOOD COUNT 13.2 K/uL (4.8-10.8)
[2017-01-12 07:05] LABS: NEUTROPHIL 91 % (50-75); REACTIVE LYMPHOCYTES 3 % (0-0); TOTAL CELLS COUNTED 100
[2017-01-12] MEDS ORDERED: Iohexol 300 100 ML IJ ONE (07:13)
[2017-01-12 08:19] VITALS: RESP 16
--- NOTE | 2017-01-12 09:37 | CT ---
PROCEDURE: CT scan 08/06/2016 HISTORY: Abdominal pain. . . History of pancreatitis COMPARISON: . Comparison made with prior study 07/26/2016. TECHNIQUE: Contiguous axial images of the abdomen and pelvis. Oral contrast was administered. No IV contrast given. Coronal and Sagittal reformats generated. Radiation dose: Total exam DLP = mGy-cm. This CT exam was performed using one or more of the following dose reduction techniques: Automated exposure control, adjustment of the mA and/or kV according to patient size, and/or use of iterative reconstruction technique. Total exam DLP = 407.39 mGy-cm. FINDINGS: LOWER THORAX: Lung bases clear without infiltrate effusion or basilar pneumothorax. Tiny hiatal hernia. . LIVER: Liver exhibits normal size and attenuation pattern without mass collection or calcification. . Mild diffuse fatty hepatic infiltration. . GALLBLADDER AND BILE DUCTS: Gallbladder is physiologically distended. No evidence intraluminal gallbladder calculi. PANCREAS: Pancreas appears grossly unremarkable without mass collection or calcification. No obvious with inflammatory changes. Existing low SPLEEN: Unremarkable. No splenomegaly. ADRENALS: No adrenal lesions. KIDNEYS AND URETERS: Kidneys demonstrate symmetric nephrograms. No evidence of nephrolithiasis or hydronephrosis. BLADDER: Urinary bladder is incompletely distended. REPRODUCTIVE: The left ovary measures approximately 2.3 x 1.8 cm and contains a eccentric septation. APPENDIX: The appendix appears unremarkable best seen on coronal image number [id number] 35. . BOWEL: Evaluation of the bowel is somewhat limited due to the lack of oral contrast. Stomach is incompletely distended. Visualized loops of small bowel exhibit normal contour and caliber. No evidence of mechanical small bowel obstruction. . There appear to be a few scattered colonic diverticula along the descending colon. PERITONEUM: Unremarkable. No fluid collection. No free air. . There is a small fat containing umbilical hernia. LYMPH NODES: Unremarkable. No enlarged lymph nodes. VASCULATURE: Unremarkable. No aortic aneurysm. BONES: No fracture or destructive lesion. OTHER FINDINGS: None. IMPRESSION: No acute intra abdominal pathology. Mild fatty hepatic infiltration. Small septated cyst left ovary felt to be present.
[2017-01-12 10:32] VITALS: BP 103/72; PULSE 87; TEMP 98.2; O2SAT 97
== END 2017-01-12 10:33 | disposition home or self-care (01) ==
LOC: C.ER 04:12
DX: N83.202 Unspecified ovarian cyst, left side (principal); J02.9 Acute pharyngitis, unspecified
CPT/HCPCS: 74177; 80053; 81001; 83690; 84703; 85025; 85610; 85730; 96374; 96375; 99285; C9113; J2405; J7040; Q9967